=== PATIENT | female | born 1950 | race Caucasian/White ===

== ENCOUNTER 2018-03-26 08:05 | Day surgery (SDC) | payer OTHER ==
[2018-03-23 11:17] LABS: Urine Appearance CLEAR; Urine Bilirubin NEGATIVE (NEG); Urine Blood 1+ (NEG); Urine Color YELLOW; Urine Glucose NEGATIVE (NEG); Urine Protein NEGATIVE (NEG); Urine Specific Gravity <=1.005 (1.005-1.030); Urine Urobilinogen 0.2 mg/dL (0.2-1.0)
[2018-03-23 11:19] LABS: Urine Microscopic Reflex ORDER UMIC
[2018-03-23 11:46] LABS: Urine Bacteria <20 /HPF (<20); Urine RBC <5 /HPF (NONE SEEN)
[2018-03-23 11:47] LABS: Urine Culture Reflex Order NOT NEEDED
[~2018-03-26 08:05] MED LIST: NITROFURAN MACRO 100 MG CAP PO SCH
--- OUTSIDE RECORDS SUMMARY | 2018-03-26 08:10 | XMS REPORT ---
:1950 Author Organization [employer] Care Team Providers Name Role Phone Madsen, Na Provider Role Unavailable Allergies, Adverse Reactions, Alerts Substance Reaction Event Type penicillin Info Not Available Drug Allergy codeine Info Not Available Drug Allergy Sulfa Info Not Available Drug Allergy Problems Problem Type Condition Code Onset Dates Condition Status Problem Cigarette nicotine dependence F17.210 Active without complication Problem Mixed incontinence N39.46 Active Problem Screening for thyroid disorder Z13.29 Active Problem Vitamin D deficiency E55.9 Active Problem GERD (gastroesophageal reflux K21.9 Active disease) Problem Hyperlipidemia E78.5 Active Problem Peripheral edema R60.9 Active Problem Age-related osteoporosis without M81.0 Active current pathological fracture Problem Depression F32.9 Active Problem Hypokalemia E87.6 Active Assessment Cigarette nicotine dependence F17.210 Active without complication Assessment Chronic UTI N39.0 Active Assessment Age-related osteoporosis without M81.0 Active current pathological fracture Assessment Mixed incontinence N39.46 Active Assessment Impacted cerumen of right ear H61.21 Active Assessment Depression F32.9 Active Assessment Vitamin D deficiency E55.9 Active Assessment Hyperlipidemia E78.5 Active Medications Medication Code Code Instructions Start End Status Dosage System Date Date Oxybutynin [facility] 88888034084 5 MG Orally Inactive 1 tablet Chloride Twice a day Lipitor ND 39392175561 20 MG Orally Active 1 tablet Once a day Ergocalciferol [facility] 46785097657 37412 UNIT Inactive 1 capsule Orally Fosamax ND 01725193405 70 MG Orally Active 1 tablet Lexapro ND 55400656405 20 MG Active TAKE ONE (1) TABLET(S) BY MOUTH ONCE A DAY. Results No Known Results Summary Purpose eClinicalWorks Submission
[2018-03-26] MEDS ORDERED: HEPARIN 5000 UNIT/ML 1 ML VIAL ONE (08:39)
[2018-03-26] MEDS ORDERED: Ringers Lactate 1,000 ML IV ONE (08:40)
[2018-03-26] MEDS ORDERED: PROPOFOL 200 MG/20 ML VIAL IV ONE (10:05)
[2018-03-26] MEDS ORDERED: FENTANYL CITR 100 MCG/2 ML ONE (10:06)
[2018-03-26] MEDS ORDERED: MIDAZOLAM HCL 2 MG/2 ML INJ ONE (10:06)
[2018-03-26] MEDS ORDERED: LIDOCAINE 2% MPF 5 ML VIAL ONE (10:07)
[2018-03-26] MEDS ORDERED: ONDANSETRON HCL 40 MG/20 ML VIAL ONE (10:08)
[2018-03-26] MEDS ORDERED: BOTU TOX TYPE A 100 UNIT/VIAL ID ONE (10:19)
[2018-03-26] MEDS ORDERED: NS 0.9% VIAL 20 ML ONE (10:26)
[2018-03-26] MEDS ORDERED: DEXAMETHASONE 10 MG/ML VIAL ONE (11:14)
--- NOTE | 2018-03-26 22:59 | OP ---
Date of Procedure: 03/26/2018 Surgeon: Gudelia Perez MD Preoperative Diagnosis: Refractory overactive bladder. Postoperative Diagnosis: Refractory overactive bladder. Procedure Performed: Cystoscopy, injection of the bladder with Botox. Anesthesia: General. Specimens: No specimens Complications: No complications. Drains: No drains. Condition: Stable. Indications: The patient is a 68-year-old with refractory overactive bladder who desires improvement in her symptoms, treated with medications and not improved at all. Her cystoscopy was done in the office to rule out any bladder tumors and the pathology was negative. There were no infections either. So we discussed the options of sacral neuromodulation or Botox inj ections. She decided to proceed this way, so she was consented and brought to the OR. Description Of Procedure: After informed consent was verified, she was taken back to the OR, placed in a supine fashion on the operating table. Macrobid 100 mg was given as preop since she has many al lergies to antibiotics. Then, the patient was placed in a supine fashion on the operating table afte r general anesthesia was given. She was placed in a dorsal lithotomy position using . The n, a 17-[place] sheath, 30-degree lens were taken and cystoscopy was performed with 300 cc and she was dilated. Then, the Laborie needle was taken and injected 4 mm depth and 100 units of Botox was dilu danielle with 10 cc of normal saline. An additional 2 mL was taken to flush the catheter and make sure th at all the Botox was utilized. Injections were done 7 in the row and 2-1/2 rows were done. The injections revealed a small amount o f bleeding and clots from 3 sites that were injected. These clots were stable and there was no ongoi ng bleeding, so the bladder was thoroughly rinsed with irrigation fluid, normal saline and drained. The patient was recovered from anesthesia and taken to PACU in stable condition. She will follow up with me in 5 days for a voiding trial and in 10 days for a postop visit. STEFFANY/PENNY Voice ID: [id number] Report ID: [id number]
== END 2018-03-26 12:25 | disposition home or self-care (01) ==
LOC: OR 08:05
PROVIDERS: ATTEND Obstetrics & Gynecology
PROC: 3E0K8GC Introduction of Other Therapeutic Substance into Genitourinary Tract, Via Natural or Artificial Opening Endoscopic (ICD-10-PCS; principal; 2018-03-26 10:00)
DX: N32.81 Overactive bladder (principal); F32.9 Major depressive disorder, single episode, unspecified; F17.210 Nicotine dependence, cigarettes, uncomplicated; I10 Essential (primary) hypertension; N95.2 Postmenopausal atrophic vaginitis; I82.409 Acute embolism and thrombosis of unspecified deep veins of unspecified lower extremity
CPT/HCPCS: 52287; J0585; J1100; J1644; J2250; J2405; J3010; 81003; 81015

== ENCOUNTER 2018-12-02 06:25 | Day surgery (SDC) | payer OTHER ==
--- OUTSIDE RECORDS SUMMARY | 2018-12-02 06:27 | XMS REPORT ---
[...] End Status Dosage System Date Date Oxybutynin [facility] 75615199534 5 MG Orally Inactive 1 tablet Chloride Twice a day Lipitor ND 33878205794 20 MG Orally Active 1 tablet Once a day Ergocalciferol [facility] 29262733672 30512 UNIT Inactive 1 capsule Orally Fosamax ND 14364074116 70 MG Orally Active 1 tablet Lexapro ND 91934685214 20 MG Active TAKE ONE (1) TABLET(S) BY MOUTH ONCE A DAY. Results No Known Results Summary Purpose eClinicalWorks Submission
[2018-12-02] MEDS ORDERED: NA CHLORIDE 0.9% 1,000 ML ONE ×2 (07:02→08:41)
[2018-12-02] MEDS ORDERED: NS 0.9% VIAL 30 ML ONE (07:02)
[2018-12-02] MEDS ORDERED: PROPOFOL 200 MG/20 ML VIAL IV ONE ×2 (07:05→08:15)
[2018-12-02] MEDS ORDERED: LIDOCAINE 2% MPF 5 ML VIAL ONE (07:05)
[2018-12-02] MEDS ORDERED: MIDAZOLAM HCL 2 MG/2 ML INJ ONE (07:05)
[2018-12-02] MEDS ORDERED: FENTANYL CITR 100 MCG/2 ML ONE (07:05)
[2018-12-02] MEDS ORDERED: CEFAZOLIN 2GM (PREMIX IV) 2 GM/50 ML BAG ONE (07:08)
[2018-12-02] MEDS ORDERED: Ringers Lactate 1,000 ML IV ONE (07:08)
[2018-12-02] MEDS: BOTU TOX TYPE A 100 UNIT/VIAL ID ONE ×2 (07:15→08:03)
[2018-12-02] MEDS ORDERED: HEPARIN 5000 UNIT/ML 1 ML VIAL ONE (07:18)
--- NOTE | 2018-12-02 17:44 | OP ---
Date of Procedure: 12/02/2018 Surgeon: Gudelia Perez MD Preoperative Diagnosis: Refractory idiopathic overactive bladder. Postoperative Diagnosis: Refractory idiopathic overactive bladder. Procedures Performed: Cystoscopy and Botox injection 150 units. Anesthesia: MAC. Complications: None. Drains: None. Specimens: None. Condition: Stable. Indications: The patient is a 68-year-old smoker with negative cystoscopy for any bladder tumors. S he had a Botox injection 100 units 7 months ago. She had a good response for about 6 weeks. Over th e next 2 weeks, slowly wore out the effect and since then she has been having recurrent symptoms very similar to preop. She decided to have another injection and so she was consented and brought to the hospital. The goal was to inject higher dose of Botox at this time, so plan was to inject 150 units for this patient. She was counseled about bleeding, infections, urinary retention, needing straight catheterizations if the there is a persistent high PVR or recurrent infections. Description Of Procedure: Ancef was given. Heparin subcu was given since the patient has remote his tory of DVT due to the immobilization now. So, she was taken to the operating room, placed in a supi ne fashion. MAC was given, placed in a dorsal lithotomy position using Chun stirrups. Lower abdome n, vulva, vagina, and perineum were prepped and draped in a sterile fashion. A 17-[place] Island[place] sheath was attempted to be used, however, the Laborie would not fit through this channel, so I used a 21-gauge s toni with a 30-degree lens with normal saline for distention medium. Cystoscopy was performed. No evidence of any bladder tumors. The trigone was well visualized and the area of the trigone with tra beculations was well visualized. After irrigating the bladder out a few times to clear it from the b lood that was there from the trauma to the urethra. Then, went on to perform injections where the [place] needle set at 4 mm depth. 200 units of Botox was reconstituted with 20 mL of sterile saline in a 10 cc syringe x2. This was at tached to the needle primed. The injections were given 6 in a row, 3 to the right and 3 to the left of the midline about a centimeter and half above the plate into the ureteric ridge. Then, a total of 15 such injections were given in 3 rows and then 1 cc x2 flushed to push out the Botox in the needle . The bladder is well drained. There was good hemostasis. The patient was recovered from anesthesi a and taken to PACU in stable condition. EBL minimal. Follow up in 5 days and 10 days postop. STEFFANY/PENNY Voice ID: [id number] Report ID: [id number]
== END 2018-12-02 09:24 | disposition home or self-care (01) ==
LOC: OR 06:25
PROVIDERS: ATTEND Obstetrics & Gynecology
PROC: 0TJB8ZZ Inspection of Bladder, Via Natural or Artificial Opening Endoscopic (ICD-10-PCS; 2018-12-02)
PROC: 3E0K8GC Introduction of Other Therapeutic Substance into Genitourinary Tract, Via Natural or Artificial Opening Endoscopic (ICD-10-PCS; principal; 2018-12-02 07:30)
DX: N32.81 Overactive bladder (principal); N95.2 Postmenopausal atrophic vaginitis; E78.5 Hyperlipidemia, unspecified; F32.9 Major depressive disorder, single episode, unspecified; F17.210 Nicotine dependence, cigarettes, uncomplicated; Z79.899 Other long term (current) drug therapy; Z86.718 Personal history of other venous thrombosis and embolism
CPT/HCPCS: 52287; J2704 ×2; J1644; J0585; J2250; J3010; J0690; J7030 ×2

== ENCOUNTER 2025-05-09 07:00 | Day surgery (SDC) | payer BC ==
[2025-05-05 15:42] LABS: Absolute Lymphocytes (CBC) 1.8 K/uL (0.7-4.9); Hematocrit 39.6 % (36.0-45.0); Hemoglobin 13.6 g/dL (12.0-15.0); MCH 30.3 pg (27.0-35.0); MCHC 34.3 g/dL (32.0-36.0); MCV 88.3 fL (80-100); MPV 7.3 fL (7.6-11.3); Nucleated RBC Absolute Count 0.0 (0-0); Nucleated Red Blood Cells % 0.2 % (0-0); RBC Red Blood Cell Count 4.48 M/uL (3.86-4.86); White Blood Count 6.60 thou/uL (4.3-10.9)
[2025-05-05 15:55] LABS: PT Prothrombin Time 11.6 SECONDS (10-13.0); PTT, Activated Partial Thromb 31.5 SECONDS (27.2-37.4); Protime INR 1.03
[2025-05-05 16:54] LABS: Anion Gap 8.8 mEq/L (5.0-15.0); BUN Blood Urea Nitrogen 13.0 mg/dL (7-18); Glucose Level 108.0 mg/dL (74-106); Potassium 3.8 mEq/L (3.5-5.1)
--- NOTE | 2025-05-05 21:58 | RAD REPORT ---
EXAMINATION: TWO VIEW CHEST XR CLINICAL INDICATION: Female, 75 years [address] [facility] Pre-op pending carotid angiogram. Hypertension TECHNIQUE: 2 view radiographs of the chest were performed. COMPARISON: No prior exam. FINDINGS: The lungs are well inflated and clear. No pneumothorax or sizable effusion. The heart is normal in si ze. Mediastinal contours are unremarkable. IMPRESSION: No acute or significant abnormalities.
[2025-05-09] MEDS ORDERED: HEPA 1000U/500MLS 2,000 UNIT/1,000 ML BAG IV ONE (08:04)
[2025-05-09] MEDS ORDERED: ATROPINE SULF 1 MG/10 ML SYR IV ONE (08:04)
[2025-05-09] MEDS ORDERED: LIDOCAINE 1% 20 ML MDV ONE (08:04)
[2025-05-09] MEDS ORDERED: MIDAZOLAM HCL 2 MG/2 ML INJ ONE (08:17)
[2025-05-09] MEDS ORDERED: FENTANYL CITR 100 MCG/2 ML ONE (08:17)
[2025-05-09] MEDS ORDERED: NA CHLORIDE 0.9% 500 ML ONE (08:19)
[2025-05-09 12:02] VITALS: BP 117/43; O2SAT 98
--- NOTE | 2025-05-09 12:05 | OP ---
Date of Procedure: 05/09/2025 Surgeon: Toni Herrmann Procedure Performed: Bilateral carotid angiogram. Indication For Procedure: Dizziness with abnormal carotid duplex. Complications: None. Estimated Blood Loss: Less than 50 cc. Access: Right common femoral artery closed by Mynx. Sedation Time: 20 minutes with 2 of Versed and 50 of fentanyl. Description Of Procedure: After risks, and benefits, and alternatives were explained to the patient, patient agreed to proceed with procedure and signed informed consent. The patient was brought back to the chemical laboratory assistant, prepped and draped in sterile fashion. Time-out was performed. Sedation was admini stered. Next, right common femoral artery access was obtained using ultrasound-guided micropuncture technique. A 3DRC catheter was advanced over a J-wire to the aortic root. Selective angiogram was d one of the right and left internal carotid arteries. At the end of procedure, catheter was removed o giovany a J-wire. Sheath was removed. Mynx was applied. Hemostasis was achieved and the patient was mo larissa back to recovery in stable condition. Findings: 1. Right common carotid artery patent with distal 20% to 30% disease. 2. Right internal carotid artery patent, diffuse 10% disease. 3. Right external carotid artery patent. 4. Left common carotid artery normal. 5. Left internal carotid artery tortuous. It takes a 90 degree bend, with no significant disease. 6. Left external carotid artery patent. Assessment And Plan: Mild bilateral carotid artery disease. Plan is to continue medical management. BLAKE/PENNY Voice ID: [id number] Report ID: [id number]
== END 2025-05-09 11:20 | disposition home or self-care (01) ==
LOC: CCL 07:00
PROVIDERS: ATTEND Internal Medicine Interventional Cardiology
PROC: B3151ZZ Fluoroscopy of Bilateral Common Carotid Arteries using Low Osmolar Contrast (ICD-10-PCS; principal; 2025-05-09)
DX: I65.23 Occlusion and stenosis of bilateral carotid arteries (principal); I77.1 Stricture of artery; R42 Dizziness and giddiness; I10 Essential (primary) hypertension; E78.5 Hyperlipidemia, unspecified; F17.210 Nicotine dependence, cigarettes, uncomplicated; Z79.82 Long term (current) use of aspirin; Z79.899 Other long term (current) drug therapy; Z88.0 Allergy status to penicillin; Z88.1 Allergy status to other antibiotic agents; Z88.5 Allergy status to narcotic agent
CPT/HCPCS: 36222; 36415; 71046; 76937; 80048; 85025; 85610; 85730; 93005; 99152; 99153; C1760; C1893; J0461; J1644; J2003; J2250; J3010; J7040; Q9966